=== PATIENT | female | born 1995 | race African-American/Black ===

== ENCOUNTER 2025-07-12 22:18 | Emergency (ER) | payer OTHER ==
[~2025-07-12] VITALS: Ht 170.2 cm; Wt 67.7 kg
[2025-07-12 22:39] VITALS: BP 126/72; PULSE 66; RESP 18; TEMP 98.2; O2SAT 100
[2025-07-13] MEDS: KETOROLAC TROMETHAMINE 60 MG/2 ML VIAL IM ONE (01:37)
[2025-07-13] MEDS ORDERED: IBUP-1492 PO (02:16)
== END 2025-07-13 02:45 | disposition home or self-care (01) ==
LOC: EMS 22:21
DX: S13.4XXA Sprain of ligaments of cervical spine, initial encounter (principal); R51.9 Headache, unspecified; V89.2XXA Person injured in unspecified motor-vehicle accident, traffic, initial encounter; Y93.89 Activity, other specified; Y92.410 Unspecified street and highway as the place of occurrence of the external cause; Y99.8 Other external cause status
CPT/HCPCS: 99285; 84703; 70450; 72125; 96372; J1885